=== PATIENT | female | born 1950 | race Caucasian/White ===

== ENCOUNTER 2018-05-08 21:39 | Emergency (ER) | payer OTHER, MEDICAID ==
[~2018-05-08] VITALS: Ht 149.9 cm; Wt 68.0 kg
[~2018-05-08 21:39] MED LIST: ATOR80TA27 PO; LOSA100T25 PO; MECL-270 PO; METF500T6 PO; TRAM50TA3 PO
--- NOTE | 2018-05-08 21:51 | NUR ---
PT AMBULATED TO BED 07 ACCOMPANIED BY DAUGHTER.
[2018-05-08 21:52] VITALS: BP 183/80
--- NOTE | 2018-05-08 21:55 | NUR ---
PT PRESENTED ER WITH C/O NECK PAIN, DIZZINESS, AND CHILLS 20 MIN PRIOR TO COMING TO ER. PT HAS A HX OF ANXIETY, HTN, DM AND CHRONIC NECK PAIN. PT IS A/0 X 4. DENIES N/V/D; SKIN IS PINK/WARM/DRY; STEADY GAIT; PATIENT STATES PAIN OF 8/10 AT THIS TIME; VSS; PATIENT POSITIONED FOR COMFORT; HOB ELEVATED; BEDRAILS UP X2; BED DOWN. ER MD MADE AWARE OF PT STATUS.
[2018-05-08] MEDS ORDERED: KETOROLAC 30 MG/ML VIAL IM ONE (22:15)
[2018-05-08] MEDS ORDERED: MECLIZINE 25 MG TAB PO ONE (22:15)
--- NOTE | 2018-05-08 22:30 | NUR ---
PT WENT TO CT
--- NOTE | 2018-05-08 22:43 | NUR ---
PT BACK FROM CT.
[2018-05-09] VITALS: BP 169/66
--- NOTE | 2018-05-09 | NUR ---
Patient discharged with v/s stable. Written and verbal after care instructions given and explained. Patient alert, oriented and verbalized understanding of instructions. Ambulatory with steady gait. All questions addressed prior to discharge. ID band removed. Patient advised to follow up with PMD. Rx of MOTRIN was given. Patient educated on indication of medication including possible reaction and side effects. Opportunity to ask questions provided and answered.
== END 2018-05-09 | disposition home or self-care (01) ==
LOC: MED 21:39
DX: S16.1XXA Strain of muscle, fascia and tendon at neck level, initial encounter (principal); E11.9 Type 2 diabetes mellitus without complications; I10 Essential (primary) hypertension; Z79.899 Other long term (current) drug therapy; X58.XXXA Exposure to other specified factors, initial encounter; Y93.89 Activity, other specified; Y92.89 Other specified places as the place of occurrence of the external cause; Y99.8 Other external cause status
CPT/HCPCS: 70450; 72125; 93005; 96372; 99284; J1885; J8597

== ENCOUNTER 2021-05-20 12:09 | Emergency (ER) | payer OTHER, MEDICAID ==
[~2021-05-20] VITALS: Ht 149.9 cm; Wt 68.0 kg
[~2021-05-20 12:09] MED LIST changes: -LOSA100T25 PO; +LOSA100T51 PO; -MECL-270 PO; +METF-988 PO; -METF500T6 PO; +[UNRECOGNIZED DRUG - CODE] PO
[2021-05-20 12:24] VITALS: BP 138/95
[2021-05-20] MEDS ORDERED: NACL 0.9% 1,000 ML IV ONE (12:40)
[2021-05-20] MEDS ORDERED: cefTRIAXone 1,000 MG in DEXT 5% MINI-BAG PLUS 50 ML IV ONE (12:40)
[2021-05-20 13:02] LABS: BASOPHILS # (AUTO) 0.1 K/uL (0.00-0.22); BASOPHILS % (AUTO) 0.9 % (0.0-2.0); EOSINOPHILS # (AUTO) 0.3 K/uL (0-0.4); EOSINOPHILS % (AUTO) 2.4 % (0.0-4.0); HEMATOCRIT 36.2 % (36-48); HEMOGLOBIN 11.8 g/dL (12.0-16.0); LYMPHOCYTES # (AUTO) 4.3 K/uL (2.5-16.5); LYMPHOCYTES % (AUTO) 39.1 % (20.5-51.1); MEAN CORPUSCULAR HEMOGLOBIN 30 pg (27-31); MEAN CORPUSCULAR HGB CONC 33 g/dL (33-37); MEAN CORPUSCULAR VOLUME 91.7 fL (80-94); MONOCYTES # (AUTO) 0.9 K/uL (0.8-1.0); MONOCYTES % (AUTO) 8.4 % (1.7-9.3); NEUTROPHILS # (AUTO) 5.4 K/uL (1.8-7.7); NEUTROPHILS % (AUTO) 49.2 % (42.2-75.2); PLATELET COUNT (AUTO) 407 K/uL (140-450); RED BLOOD CELL COUNT(AUTO) 3.94 MIL/uL (4.20-5.40); RED CELL DISTRIBUTION WIDTH 14.6 % (11.6-13.7)
[2021-05-20] MEDS ORDERED: cefTRIAXone 1,000 MG VIAL ONE (13:02)
[2021-05-20 13:15] LABS: ANION GAP 17.3 (8-16); CARBON DIOXIDE 23.1 mmol/L (21-32); CHLORIDE 105 mmol/L (98-107); CREATININE 1.1 mg/dL (0.6-1.3); GLUCOSE 157 mg/dL (74-106); POTASSIUM 3.4 mmol/L (3.5-5.1); SODIUM SERUM 142 mmol/L (136-145); UREA NITROGEN, BLOOD 8 mg/dL (7-18)
[2021-05-20 13:30] LABS: ALBUMIN 3.3 g/dL (3.4-5.0); ASPARTATE AMINOTRANSFERASE 24 U/L (15-37); TOTAL BILIRUBIN 0.5 mg/dL (0.0-1.0)
[2021-05-20] MEDS ORDERED: MECLIZINE 25 MG TAB PO ONE (15:25)
[2021-05-20] MEDS ORDERED: MECL-303 PO (16:23)
[2021-05-20] MEDS ORDERED: AMOX1TAB8 PO (16:25)
[2021-05-20] MEDS ORDERED: CEFP200T20 PO (16:26)
[2021-05-20 16:39] VITALS: BP 138/62
== END 2021-05-20 16:39 | disposition home or self-care (01) ==
LOC: MED 12:09
DX: R42 Dizziness and giddiness (principal); J18.9 Pneumonia, unspecified organism; R11.0 Nausea; E87.2 Acidosis; I10 Essential (primary) hypertension; F41.9 Anxiety disorder, unspecified; E11.9 Type 2 diabetes mellitus without complications; Z90.49 Acquired absence of other specified parts of digestive tract; Z98.890 Other specified postprocedural states
CPT/HCPCS: 36415; 70450; 71045; 80053; 81002; 83605; 83880; 84484; 85025; 87040; 93005; 96365; 99285; J0696; J7030; J8597; Q0092

== ENCOUNTER 2021-12-11 09:06 | Emergency (ER) | payer OTHER, MEDICAID ==
[~2021-12-11] VITALS: Ht 149.9 cm; Wt 74.4 kg
[~2021-12-11 09:06] MED LIST changes: +CEFP200T20 PO; +MECL-303 PO; +METF-1243 PO; -METF-988 PO
[2021-12-11 09:24] VITALS: BP 147/73
--- NOTE | 2021-12-11 09:30 | NUR ---
AMBULATED WITH USE OF PERSONAL CANE TO BED 6
--- NOTE | 2021-12-11 09:42 | NUR ---
ULTRASOUND AT BEDSIDE
--- NOTE | 2021-12-11 09:50 | NUR ---
PT TAKEN TO CT VIA JOHN
--- NOTE | 2021-12-11 09:51 | NUR ---
71/F BIB DAUGHTER TO ED WITH C/O DIZZINESS, NAUSEA AND BODY ACHES SINCE YESTERDAY. PER DAUGHTER PATIENT STATES SYMPTOMS CAME ON SUDDENLY STATING HER BP WAS ELEVATED AT 150/100 AND STATES BILATERAL HANDS AND FEET WERE SWOLLEN. PATIENT REPORTS HX OF HTN BUT STATES SHE IS COMPLIANT WITH HER DAILY MEDICATION. UPON ARRIVAL TO ED PATIENT DENIES DIZZINESS, VISION CHANGES, OR SWELLING, DENIES N/V/D. PATIENT AMBULATORY WITH USE OF PERSONAL CANE.
--- NOTE | 2021-12-11 10:06 | NUR ---
PT RETURNED FROM CT
[2021-12-11 10:49] LABS: BASOPHILS # (AUTO) 0.1 K/uL (0.00-0.22); BASOPHILS % (AUTO) 0.6 % (0.0-2.0); EOSINOPHILS % (AUTO) 0.4 % (0.0-4.0); HEMATOCRIT 33.6 % (36-48); HEMOGLOBIN 11.2 g/dL (12.0-16.0); LYMPHOCYTES # (AUTO) 1.1 K/uL (2.5-16.5); LYMPHOCYTES % (AUTO) 11.4 % (20.5-51.1); MEAN CORPUSCULAR HEMOGLOBIN 29 pg (27-31); MEAN CORPUSCULAR HGB CONC 33 g/dL (33-37); MONOCYTES # (AUTO) 0.4 K/uL (0.8-1.0); MONOCYTES % (AUTO) 4.5 % (1.7-9.3); NEUTROPHILS % (AUTO) 83.1 % (42.2-75.2); PLATELET COUNT (AUTO) 257 K/uL (140-450); RED BLOOD CELL COUNT(AUTO) 3.82 MIL/uL (4.20-5.40); RED CELL DISTRIBUTION WIDTH 14.7 % (11.6-13.7); WHITE BLOOD COUNT (AUTO) 9.6 K/uL (4.8-10.8)
[2021-12-11 11:14] LABS: APPEARANCE,URINE CLEAR (CLEAR); BILIRUBIN,URINE NEGATIVE (NEGATIVE); BLOOD, URINE 1+ (NEGATIVE); COLOR,URINE YELLOW (YELLOW); LEUKOCYTE ESTERASE ,URINE NEGATIVE (NEGATIVE); NITRITE, URINE NEGATIVE (NEGATIVE); UGLUCOSE NEGATIVE (NEGATIVE)
[2021-12-11 11:45] LABS: ALBUMIN 3.3 g/dL (3.4-5.0); ANION GAP 16.3 (8-16); ASPARTATE AMINOTRANSFERASE 25 U/L (15-37); CARBON DIOXIDE 21.2 mmol/L (21-32); CHLORIDE 105 mmol/L (98-107); CREATININE 1.7 mg/dL (0.6-1.3); GLUCOSE 146 mg/dL (74-106); MAGNESIUM 1.6 mg/dL (1.8-2.4); PHOSPHORUS 2.6 mg/dL (2.5-4.9); POTASSIUM 3.5 mmol/L (3.5-5.1); SODIUM SERUM 139 mmol/L (136-145); TOTAL BILIRUBIN 0.5 mg/dL (0.0-1.0); UREA NITROGEN, BLOOD 22 mg/dL (7-18)
[2021-12-11 11:51] LABS: RBC,URINE 0-5 /HPF (0-5); WBC,URINE 0-5 /HPF (0-5)
[2021-12-11 11:52] LABS: CALCIUM OXALATE CRYSTALS,UR None Seen /HPF (None Seen); COARSE GRANULAR CASTS,URINE None Seen /LPF (None Seen); FINE GRANULAR CASTS,URINE None Seen /LPF (None Seen); HYALINE CASTS, URINE None Seen /LPF (None Seen); OTHER CASTS, URINE None Seen /LPF (None Seen); OTHER CRYSTALS,URINE None Seen /HPF (None Seen); RED BLOOD CELL CASTS,URINE None Seen /LPF (None Seen); TRICHOMONAS,URINE None Seen /HPF (None Seen); TRIPLE PHOSPHATE CRYSTAL,UR None Seen /HPF (None Seen); URIC ACID CRYSTALS,URINE None Seen /HPF (None Seen); URINE AMORPHOUS URATE None Seen /HPF (None Seen); WAXY CASTS,URINE None Seen /LPF (None Seen); YEAST,URINE Rare /HPF (None Seen)
--- NOTE | 2021-12-11 13:16 | NUR ---
PT AMBULATED WITH CANE , ASSISTED BY DAUGHTER TO RESTROOM
--- NOTE | 2021-12-11 13:24 | NUR ---
PT AMBULATED BACK TO ROOM WITH CANE , ASSISTED BY DAUGHTER
[2021-12-11] MEDS ORDERED: FLUCONAZOLE 100 MG TAB PO ONE (13:45)
[2021-12-11] MEDS ORDERED: FLUCONAZOLE 100 MG TAB ONE (14:16)
[2021-12-11] MEDS ORDERED: CRUSHER, PILL MC ONE (14:16)
[2021-12-11] MEDS ORDERED: MECLIZINE 25 MG TAB PO ONE (14:45)
[2021-12-11] MEDS ORDERED: NACL 0.9% 1,000 ML IV ONE (14:45)
--- NOTE | 2021-12-11 15:00 | NUR ---
PT AT REST , OFFERED 2ND WARM BLANKET.
--- NOTE | 2021-12-11 16:03 | NUR ---
PT AMBULATED WITH CANE TO RESTROOM , ASSISTED BY
--- NOTE | 2021-12-11 16:10 | NUR ---
PT AMBULATED WITH CANE TO ROOM , ASSISTED BY
[2021-12-11] MEDS ORDERED: AMLO5TAB PO (16:31)
[2021-12-11] MEDS ORDERED: ROSU40TA PO (16:31)
[2021-12-11] MEDS ORDERED: METF-951 PO (16:34)
[2021-12-11] MEDS ORDERED: MECL-303 PO ×2 (16:35→21:54)
[2021-12-11] MEDS ORDERED: OLME20TA11 PO (16:36)
[2021-12-11 17:46] VITALS: BP 155/73
--- NOTE | 2021-12-11 19:32 | NUR ---
REPORT GIVEN TO JUN ROTHMAN. TRANSFER OF CARE
--- NOTE | 2021-12-11 19:53 | NUR ---
PT AMBULATED TO BATHROOM WITH WALKER AND CANE
--- NOTE | 2021-12-11 21:20 | NUR ---
DR LOCKHART AT BEDSIDE EXPLAINING AMA FORM RISKS ANS COMPLICATIONS
[2021-12-11] MEDS ORDERED: FLUC200T8 PO (21:54)
--- NOTE | 2021-12-11 22:00 | NUR ---
Patient discharged with v/s stable. Written and verbal after care instructions given and explained. Patient alert, oriented and verbalized understanding of instructions. Ambulatory with steady gait. All questions addressed prior to discharge. ID band removed. Patient advised to follow up with PMD. Rx of FLUCONAZALE AND MECLIZINE given. Opportunity to ask questions provided and answered. Addendum: 12/12/21 at 0121 by SHARAN Patient does not wish to proceed with medical care recommended by . Patient given information related to possible complications, up to and including , which could occur as a result of leaving hospital at this time. Patient verbalizes understanding of risks involved leaving against medical advice. Patient has signed AMA form. PT PROVIDED WITH FLUCONAZOLE AND MECLIZINE I
--- NOTE | 2021-12-11 22:27 | NUR ---
The patient's care was reviewed and supervised by Maria E Bruner RN.
== END 2021-12-11 22:00 | disposition left against medical advice (07) ==
LOC: MED 09:06
DX: R42 Dizziness and giddiness (principal); Z20.822 Contact with and (suspected) exposure to COVID-19; N17.9 Acute kidney failure, unspecified; B37.41 Candidal cystitis and urethritis; E11.9 Type 2 diabetes mellitus without complications; I10 Essential (primary) hypertension
CPT/HCPCS: 36415; 70450; 71045; 80053; 81001; 83735; 84100; 84484; 85025; 87426; 93005; 96360; 99285; J7030; J8597